=== PATIENT | female | born 1945 | race African-American/Black ===

== ENCOUNTER 2018-10-26 06:12 | Day surgery (SDC) | payer MEDICARE, OTHER ==
--- NOTE | 2018-10-23 09:56 | Opthalmology H&P ---
Ophthalmology H&P H&P Chief Complaint: decreased vision in right eye HPI Vision Affects Ability to: read, manage personal affairs Past Ocular History: retinal problems - HTN RETINOPATHY OU,PRD OU HPI Narrative Blurry Vision Exam Visual Acuity: OD 20/100 OS 20/100 Tension: OD 14 OS 15 Eye Exam: normal OU: external exam, palpebral fissure-width, marginal reflex distance, levator function, corneas, anterior chambers; findings: lens - NS Cataract OU, fundus exam - HTN Retinopathy OU/ PRD OU Assessment/Plan Treatment Plan: cataract extraction w/ lens implant Goals of Treatment: improvement of vision, enhance quality of life Attestation Attestation The risks and benefits of the surgery as well as alternative procedures were explained to the patient in detail. Patriec Love MD Oct 23, 2018 09:56
--- NOTE | 2018-10-23 09:57 | Pre-Procedure Note/Attestation ---
Pre-Procedure Note/Attestation Complete Prior to Procedure Planned Procedure: right Procedure Narrative: Cataract Extraction With Intraocular Lens Implant Right Eye Indications for Procedure Pre-Operative Diagnosis: Nuclear Sclerotic Cataract Right Eye Attestation I attest that I discussed the nature of the procedure; its benefits; risks and complications; and alternatives (and the risks and benefits of such alternatives ), prior to the procedure, with the patient (or the patient's legal roofing sales representative). I attest that, if there was a reasonable possibility of needing a blood transfusion, the patient (or the patient's legal roofing sales representative) was given the [facility] standardized written summary, pursuant to the Matthew Margret Blood Safety Act ([place] Health and Safety Code # 1645, as amended). I attest that I re-evaluated the patient just prior to the surgery and that there has been no change in the patient's H&P, except as documented below: Patrice Love MD Oct 23, 2018 09:57
[~2018-10-26] VITALS: Ht 160 cm; Wt 79.4 kg
[2018-10-26] VITALS (9 sets, daily range): BP systolic 116–150; BP diastolic 62–75
[2018-10-26] MEDS ORDERED: Diclofenac Sod 0.1% Op Soln RIGHT EYE SCH (07:00)
[2018-10-26] MEDS ORDERED: Tetracaine 0.5% Opth 4ml Soln RIGHT EYE ONE (07:00)
[2018-10-26] MEDS ORDERED: Proparacaine 0.5% Opth Soln 15ml RIGHT EYE ONE (07:00)
[2018-10-26] MEDS ORDERED: Maxitrol Opth Oint 3.5gm ONE (07:00)
[2018-10-26] MEDS ORDERED: Pilocarpine 1% Opth 15ml Soln ONE (07:00)
[2018-10-26] MEDS ORDERED: Dexamethasone 4mg/ml vial ONE (07:00)
[2018-10-26] MEDS ORDERED: Pred Forte 1% Opth Susp 1ml ONE (07:00)
[2018-10-26] MEDS ORDERED: Akten 3.5% 1ml Btl RIGHT EYE ONE (07:00)
[2018-10-26] MEDS: Tropicamide 1% Opth 15ml Soln RIGHT EYE SCH ×3 (08:02→08:29)
[2018-10-26] MEDS: Cyclopentolate 1% Opth Sol 2ml RIGHT EYE SCH ×3 (08:02→08:29)
[2018-10-26] MEDS: Phenylephrine 10% Opth Soln 5ml RIGHT EYE SCH ×3 (08:03→08:29)
[2018-10-26] MEDS: Tobramycin Op Soln 0.3% 5ml RIGHT EYE SCH ×3 (08:03→08:29)
[2018-10-26] MEDS ORDERED: IRON159 MG PO (08:25)
[2018-10-26] MEDS ORDERED: MECLIZINE HCL25 MG ORAL (08:25)
[2018-10-26] MEDS ORDERED: ACETAMINOPHEN325 M1 ORAL (08:25)
[2018-10-26] MEDS ORDERED: HYDROCHLOROTHIA25 MG ORAL (08:25)
[2018-10-26] MEDS ORDERED: ZANTAC150 MG ORAL (08:25)
[2018-10-26] MEDS ORDERED: LOSARTAN POTASS25 MG ORAL (08:25)
[2018-10-26] MEDS ORDERED: ROBAXIN500 MG PO (08:25)
[2018-10-26] MEDS ORDERED: VITAMIN C500 M1 ORAL (08:25)
[2018-10-26] MEDS ORDERED: VITAMIN D1000 UNI1 ORAL (08:25)
--- NOTE | 2018-10-26 09:32 | Anethesia Preoperative Eval ---
Anesthesia Pre-op PMH/ROS General Date of Evaluation: Oct 26, 2018 Time of Evaluation: 09:28 Anesthesiologist: Susan ASA Score: ASA 2 Mallampati Score Class I : Soft palate, uvula, fauces, pillars visible Class II: Soft palate, uvula, fauces visible Class III: Soft palate, base of uvula visible Class IV: Only hard plate visible Mallampati Classification: Class II Surgeon: Kate Diagnosis: R eye cataract Surgical Procedure: R eye cataract extractiion Anesthesia History: none Social History: smoking - h/o Family History: no anesthesia problems Allergies: Coded Allergies: No Known Allergies (Unverified , 10/23/18) Medications: see eMAR Patient NPO?: Yes Past Medical History Cardiovascular: Reports: HTN; Denies: CAD, NM, valve dz, arrhythmia, other Pulmonary: Denies: asthma, COPD, HECTOR, other Gastrointestinal/Genitourinary: Reports: GERD; Denies: CRI, ESRD, other Neurologic/Psychiatric: Reports: depression/anxiety; Denies: dementia, CVA, TIA, other Endocrine: Denies: DM, hypothyroidism, steroids, other HEENT: Reports: cataract (L), cataract (R); Denies: glaucoma, [place] (L), [place] (R), other Hematology/Immune: Reports: anemia - mild; Denies: DVT, bleeding disorder, other Musculoskeletal/Integumentary: Reports: DJD Other: other - overweight PMH Narrative: as above PSxH Narrative: see H&P Anesthesia Pre-op Phys. Exam Physician Exam Last Vital Signs Date Time Temp Pulse Resp B/P (MAP) Pulse Ox O2 Delivery O2 Flow Rate FiO2 10/26/18 08:15 97.5 65 20 116/62 99 Room Air Constitutional: NAD Neurologic: CN 2-12 intact Cardiovascular: RRR, no M/R/G Respiratory: CTA Gastrointestinal: S/NT/ND Airway Exam Mallampati Score: Class II MO: limited Neck: stiff ROM: limited Teeth: missing Dentures: no upper, no lower Anesthesia Pre-op A/P Labs see chart Studies Pre-op Studies: EKG - SR Risk Assessment & Plan Assessment: ASA 2 Plan: MAC Status Change Before Surgery: No Dann Davis MD Oct 26, 2018 09:32
[2018-10-26] MEDS ORDERED: fentaNYL 100 mcg/2 mL IV PRN (09:45)
[2018-10-26] MEDS ORDERED: LR 1000ml ONE (10:00)
[2018-10-26] MEDS ORDERED: NS Irrig 1000ml ONE (10:00)
[2018-10-26] MEDS ORDERED: Sterile Water Irrig 1000ml IRRIG ONE (10:00)
[2018-10-26] MEDS ORDERED: fentaNYL 100 mcg/2 mL IV ONE (10:00)
--- NOTE | 2018-10-26 10:36 | Immediate Post-Op Evaluation ---
Immediate Post-Op Evalulation Immediate Post-Op Evalulation Procedure: R eye cataractextraction with IOL Date of Evaluation: Oct 26, 2018 Time of Evaluation: 10:35 IV Fluids: 300 Blood Products: none Estimated Blood Loss: none Urinary Output: none Blood Pressure Systolic: 141 Blood Pressure Diastolic: 75 Pulse Rate: 68 Respiratory Rate: 20 O2 Sat by Pulse Oximetry: 98 Temperature (Fahrenheit): 97.8 Pain Score (1-10): 1 Nausea: No Vomiting: No Complications none Patient Status: awake, patent, none Hydration Status: adequate Dann Davis MD Oct 26, 2018 10:36
--- NOTE | 2018-10-26 12:55 | 48 Hour Post Anesthesia Eval ---
Post Anesthesia Evaluation Procedure: R eye cataractextraction with IOL Date of Evaluation: Oct 26, 2018 Time of Evaluation: 12:54 Blood Pressure Systolic: 148 0: 75 Pulse Rate: 64 Respiratory Rate: 20 Temperature (Fahrenheit): 97.6 O2 Sat by Pulse Oximetry: 97 Airway: patent Nausea: No Vomiting: No Pain Intensity: 1 Hydration Status: adequate Cardiopulmonary Status: stable Mental Status/LOC: patient returned to baseline Follow-up Care/Observations: n/a Post-Anesthesia Complications: none Follow-up care needed: ready to discharge Dann Davis MD Oct 26, 2018 12:55
[2018-10-26] MEDS ORDERED: EPINEPHrine 1mg/1ml Amp ONE (14:15)
[2018-10-26] MEDS ORDERED: BSS 15ml BTL ONE (14:16)
[2018-10-26] MEDS ORDERED: BSS 500ml btl ONE (14:16)
[2018-10-26] MEDS ORDERED: Sodium Hyaluronate 14 mg/ml 0.85ml ONE (14:16)
[2018-10-26] MEDS ORDERED: Povidone-Iodine 5% opth solution ONE (14:16)
--- NOTE | 2018-10-27 12:49 | Brief Operative Note ---
Immediate Post Operative Note Operative Note Chief Complaint: blurry vision Pre-op Diagnosis: Nuclear Sclerotic Cataract Right Eye Procedure: phaco with IOL Post-op Diagnosis: Pseudophakia Post-op Diagnosis: same as pre-op Findings: consistent w/pre-op dx studies Surgeon: Kate Anesthesiologist: Susan Anesthesia: MAC Specimen: none Complications: none Condition: stable Fluids: LR Estimated Blood Loss: none Drains: none Implant(s) used?: Yes Patrice Love MD Oct 27, 2018 12:49
--- NOTE | 2018-10-27 12:50 | Operative Note - PDOC ---
Operative Note Operative Note Date of Operation/Procedure: Oct 26, 2018 Chief Complaint: blurry vision Pre-op Diagnosis: Nuclear Sclerotic Cataract Right Eye Procedure: phaco with IOL Post-op Diagnosis: Pseudophakia Post-op Diagnosis: same as pre-op Operative Findings: consistent w/pre-op dx studies Surgeon: Kate Anesthesiologist: Susan Anesthesia: MAC Specimen: none Complications: none Condition: stable Fluids: LR Estimated Blood Loss: none Drains: none Implant(s) used?: Yes Indications for Procedure cataract Description of Procedure This patient has been complaining visually significant cataract in the affected eye with the best corrected visual acuity under moderate glare conditions worse. The patient complains of difficulties with glare in performing activities of daily living and wants to manage personal affairs with comfort and accuracy and see well enough to move with safety at home and outdoors. The risks, benefits and alternatives of the procedure were discussed with the patient in the office prior to scheduling surgery. All questions from the patient were answered after the surgical procedure was explained in detail. The risks of the procedure as explained to the patient include, but are not limited to, pain, infection, bleeding, loss of vision, retinal detachment, need for further surgery, loss of lens nucleus, double vision, etc. Alternative procedures were discussed which include, to do nothing or seek a second opinion. Informed consent for this procedure was obtained from the patient. The patient was referred to a primary care physician for a cardiopulmonary clearance prior to surgery, after proper evaluation was done patient was properly scheduled for outpatient surgery. The patient was brought to the operating room where the anesthesiologist established I.V. lines and cardiac monitoring leads. Mild intravenous sedation was administered. The patient was then prepared with a 5% solution of povidone -iodine to the conjunctival fornix and lashes, and a 5% solution of povidone- iodine to the lids and periorbital skin. The patient was then draped in the usual sterile fashion. A lid speculum was then placed in the operative eye. A keratome blade was then used to create a biplanar incision into the anterior chamber. Viscoelastics was then instilled into the anterior chamber. A curvilineaer capsulorrhexis was then fashioned with an utrata forceps. BSS and a G 27 cannula were then used to hydrodissect and hydro delineate the lens. Paracentesis incision was made at 3 o'clock with sharp blade. The phacoemulsification unit, after being properly adjusted and tested, was then used to emulsify the nucleus followed by residual cortical material being aspirated with the irrigation and aspiration unit. Healon was then instilled into the anterior chamber. The corneal wound was then enlarged to the size of the optic with the jeri keratome blade. The intraocular lens was then inspected for right power and size and thought to be satisfactory. Then the lens was gently placed in the capsular bag. Positioning within the capsular bag was confirmed by direct visualization. Optic centration was accomplished with a Sinskey hook. Viscoelastics was removed from the anterior chamber using the irrigation and aspiration unit. The corneal wound was then tested for leaks and none were found. The lid speculum were then removed. Sponge and needle counts were correct. An eye patch and shield were placed over the operative eye. The patient was taken to the recovery room in stable condition. There were no complications. The patient tolerated the procedure well. The patient was then transferred to the ambulatory surgery unit in stable and satisfactory condition , was given detailed written instructions and asked to follow up in the office the next day. Patrice Love MD Oct 27, 2018 12:50
== END 2018-10-26 11:55 | disposition home or self-care (01) ==
LOC: SUR 06:12
DX: H25.11 Age-related nuclear cataract, right eye (principal); H35.00 Unspecified background retinopathy; I10 Essential (primary) hypertension; M19.90 Unspecified osteoarthritis, unspecified site; K21.9 Gastro-esophageal reflux disease without esophagitis; F32.9 Major depressive disorder, single episode, unspecified; F41.9 Anxiety disorder, unspecified
CPT/HCPCS: 66984; J0171; J1100; J3010; J3370; V2632; 94003; 94150

== ENCOUNTER 2018-11-23 06:44 | Day surgery (SDC) | payer MEDICARE, MEDICAID ==
[2018-11-19 08:54] LABS: HEMATOCRIT 32.7 % (37.0-47.0); HEMOGLOBIN 10.7 G/DL (12.0-16.0); MEAN CORPUSCULAR VOLUME 92 FL (80-99); PLATELET COUNT 80 K/UL (150-450); RED BLOOD COUNT 3.56 M/UL (4.20-5.40); RED CELL DISTRIBUTION WIDTH 12.1 % (11.6-14.8); WHITE BLOOD COUNT 2.6 K/UL (4.8-10.8)
[2018-11-19 09:12] LABS: ANION GAP 6 mmol/L (5-15); BLOOD UREA NITROGEN 15 mg/dL (7-18); CARBON DIOXIDE 26 MMOL/L (21-32); CHLORIDE 110 MMOL/L (98-107); CREATININE 0.9 MG/DL (0.55-1.30); POTASSIUM 3.4 MMOL/L (3.5-5.1); SODIUM 142 MMOL/L (136-145)
--- NOTE | 2018-11-19 16:15 | Pre-op HX & Phy Repo 2 SIG ---
DATE OF ADMISSION: 11/23/2018 PRESURGICAL INTERNAL MEDICINE HISTORY AND PHYSICAL DATE OF PLANNED SURGERY: Surgery is scheduled for 11/23/2018. HISTORY OF PRESENT ILLNESS: I was asked by Dr. Patrice Love to see this 73-year-old female, who is going for elective surgery on the left eye. The patient has nuclear sclerotic cataract, left eye. The patient was examined and chart was reviewed at the [facility] outpatient procedure department. PAST MEDICAL HISTORY/REVIEW OF SYSTEMS: Remarkable for history of hypertension. No history of chest pain, palpitation, or heart attack. Denies history of stroke or seizures. No history of diabetes. Denies history of respiratory problem, asthma or bronchitis. The patient does have history of iron deficiency anemia, pancytopenia, history of constipation and cholelithiasis. No history of thyroid problem. No history of renal failure. PAST SURGICAL HISTORY: Right eye cataract three months ago and hysterectomy more than 30 years ago. Also bunion bilaterally, upper GI and colonoscopy last year, and larynx polyp removed months ago. FAMILY HISTORY: Mother from cancer of uterus. Father unknown. ALLERGIES: Not known. PRESENT MEDICATIONS: Include losartan, hydrochlorothiazide, Robaxin, vitamin D, vitamin C, ranitidine, Maalox , iron sulfate, and Tylenol p.r.n. HABITS: The patient smoked in the past for approximately 15 years and stopped in 1970. Denies alcohol or street drug use. PHYSICAL EXAMINATION: GENERAL: Alert, well-developed and well-nourished female, overweight. VITAL SIGNS: Blood pressure 147/67, temperature 97.5, pulse 75, and respirations 20. O2 saturation 98% on room air. SKIN: Clear and warm. No rashes or ulceration. LYMPHATICS: Lymph nodes not enlarged. HEENT: Head is normocephalic and atraumatic. Ears, clear. No discharge. Eyes, full description per Dr. Patrice Love. Mouth, clear and moist. Partial dentures in upper and lower. NECK: Supple. No jugular distention. Carotids artery +2. Trachea midline. CHEST: No deformity or asymmetry. LUNGS: Clear to auscultation and percussion. HEART: Sinus rhythm. Sound distant. No ectopy. No murmur. No S3, S4. ABDOMEN: Soft, obese. Liver and spleen not enlarged. No rebound. EXTREMITIES: Degenerative joint disease of knee. No edema. No varicose veins. NEUROLOGIC: No tremor. No nystagmus. DIAGNOSTIC DATA: ECG dated 10/01/2018, normal sinus rhythm, 69 per minute, normal ECG. LABORATORY DATA: Lab work done today showed a sodium 142, potassium 3.4, BUN 15, and creatinine 0.9. Blood sugar 123. Calcium 10.0. CBC - white blood cells. 2.6, hemoglobin 10.7, hematocrit 33.7, red blood cells , platelets 80,000. IMPRESSION: 1. Nuclear sclerotic cataract, left eye. 2. Hypertension, controlled. 3. Cholelithiasis. 4. Pancytopenia. 5. Hypokalemia. 6. Degenerative joint disease, osteoarthritis of knee. PLAN: Cataract extraction, left eye with intraocular lens implant per Dr. Patrice Love. CONCLUSION: The patient is a 73-year-old female, who has history of hypertension. She has pancytopenia and anemia. The patient to be NPO after midnight on Friday. The patient's condition is optimized for surgery. Thank you very much, Dr. Love, for privilege to participate in the presurgical care of this interesting patient. Mack King M.D. DR: RUIZ JOB#: [id number] CC:
--- NOTE | 2018-11-20 10:32 | Opthalmology H&P ---
Ophthalmology H&P H&P Chief Complaint: decreased vision in left eye HPI Vision Affects Ability to: read, manage personal affairs HPI Narrative blurry vision Exam Visual Acuity: OD 20/25 OS 20/200 Tension: OD 18 OS 19 Eye Exam: normal OU: external exam, palpebral fissure-width, marginal reflex distance, levator function, corneas, anterior chambers; findings: lens - pseudo OD / NS cataract OS, fundus exam - htn retinopathy Assessment/Plan Treatment Plan: cataract extraction w/ lens implant Goals of Treatment: improvement of vision, enhance quality of life Attestation Attestation The risks and benefits of the surgery as well as alternative procedures were explained to the patient in detail. Patrice Love MD November 20, 2018 10:32
--- NOTE | 2018-11-20 10:33 | Pre-Procedure Note/Attestation ---
Pre-Procedure Note/Attestation Complete Prior to Procedure Planned Procedure: left Procedure Narrative: Cataract extraction with intraocular lens implant left eye Indications for Procedure Pre-Operative Diagnosis: Nuclear sclerotic cataract left eye Attestation I attest that I discussed the nature of the procedure; its benefits; risks and complications; and alternatives (and the risks and benefits of such alternatives ), prior to the procedure, with the patient (or the patient's legal litigation claim representative). I attest that, if there was a reasonable possibility of needing a blood transfusion, the patient (or the patient's legal litigation claim representative) was given the [facility] standardized written summary, pursuant to the [place] Blood Safety Act ([place] Health and Safety Code # 1645, as amended). I attest that I re-evaluated the patient just prior to the surgery and that there has been no change in the patient's H&P, except as documented below: Patrice Love MD November 20, 2018 10:33
[2018-11-23] VITALS (10 sets, daily range): BP systolic 139–155; BP diastolic 63–74
[~2018-11-23] VITALS: Ht 160 cm; Wt 79.4 kg
[~2018-11-23 06:44] MED LIST: ACETAMINOPHEN325 M1 ORAL; HYDROCHLOROTHIA25 MG ORAL; IRON159 MG PO; LOSARTAN POTASS25 MG ORAL; MECLIZINE HCL25 MG ORAL; ROBAXIN500 MG PO; VITAMIN C500 M1 ORAL; VITAMIN D1000 UNI1 ORAL; ZANTAC150 MG ORAL
[2018-11-23] MEDS ORDERED: Proparacaine 0.5% Opth Soln 15ml LEFT EYE ONE (07:00)
[2018-11-23] MEDS ORDERED: Tetracaine 0.5% Opth 4ml Soln LEFT EYE ONE (07:00)
[2018-11-23] MEDS ORDERED: Akten 3.5% 1ml Btl LEFT EYE ONE (07:00)
[2018-11-23] MEDS: Tropicamide 1% Opth 15ml Soln LEFT EYE SCH ×3 (08:47→09:08)
[2018-11-23] MEDS: Tobramycin Op Soln 0.3% 5ml LEFT EYE SCH ×3 (08:48→09:08)
[2018-11-23] MEDS: Diclofenac Sod 0.1% Op Soln LEFT EYE SCH ×3 (08:48→09:08)
[2018-11-23] MEDS: Cyclopentolate 1% Opth Sol 2ml LEFT EYE SCH ×3 (08:48→09:08)
[2018-11-23] MEDS: Phenylephrine 10% Opth Soln 5ml LEFT EYE SCH ×3 (08:48→09:08)
[2018-11-23] MEDS ORDERED: BSS 500ml btl ONE (10:41)
[2018-11-23] MEDS ORDERED: EPINEPHrine 1mg/1ml Amp ONE (10:41)
[2018-11-23] MEDS ORDERED: Sodium Hyaluronate 14 mg/ml 0.85ml ONE (10:41)
[2018-11-23] MEDS ORDERED: Povidone-Iodine 5% opth solution ONE (10:41)
[2018-11-23] MEDS ORDERED: BSS 15ml BTL ONE (10:41)
[2018-11-23] MEDS ORDERED: Propofol 200mg/20ml IV ONE (10:44)
[2018-11-23] MEDS ORDERED: Lidocaine 1% MPF 10mg/ml 5ml ONE (10:44)
[2018-11-23] MEDS ORDERED: Sterile Water Irrig 1000ml IRRIG ONE (10:44)
[2018-11-23] MEDS ORDERED: LR 1000ml ONE (10:44)
[2018-11-23] MEDS ORDERED: Dexamethasone 4mg/ml vial ONE (10:44)
[2018-11-23] MEDS ORDERED: Pred Forte 1% Opth Susp 1ml ONE (10:44)
[2018-11-23] MEDS ORDERED: NS Irrig 1000ml ONE (10:44)
[2018-11-23] MEDS ORDERED: Maxitrol Opth Oint 3.5gm ONE (10:44)
[2018-11-23] MEDS ORDERED: Pilocarpine 1% Opth 15ml Soln ONE (10:44)
[2018-11-23] MEDS ORDERED: LORazepam Inj 2mg/ml 1ml IV PRN (10:45)
[2018-11-23] MEDS ORDERED: fentaNYL 100 mcg/2 mL IV PRN (10:45)
[2018-11-23] MEDS ORDERED: Hydromorphone 0.5mg/0.5ml inj IVP PRN (10:45)
[2018-11-23] MEDS ORDERED: Midazolam 2mg/2ml Inj IVP PRN (10:45)
[2018-11-23] MEDS ORDERED: DiphenhydrAMINE 50mg/ml Inj IVP PRN (10:45)
[2018-11-23] MEDS ORDERED: Metoclopramide 10mg/2ml Inj IVP PRN (10:45)
[2018-11-23] MEDS ORDERED: HYDROcodone/Acetamin 5/325 tab ORAL PRN (10:45)
[2018-11-23] MEDS ORDERED: Labetalol 5mg/ml 20ml vial IV PRN (10:45)
[2018-11-23] MEDS ORDERED: Ketorolac 30mg Inj IV PRN ×2 (10:45)
[2018-11-23] MEDS ORDERED: Meperidine 50mg/ml Inj(FOR RIGORS ONLY) IVP PRN (10:45)
[2018-11-23] MEDS ORDERED: LR 1000ml 1,000 ML IVLG SCH (10:45)
[2018-11-23] MEDS ORDERED: Atropine Sulfate 0.4mg/ml inj IVP PRN (10:45)
[2018-11-23] MEDS ORDERED: oxyCODONE HCL/Acetaminophen 5/325mg ORAL PRN (10:45)
[2018-11-23] MEDS ORDERED: HYDROcodone/Acetamin 7.5/325 tab ORAL PRN (10:45)
--- NOTE | 2018-11-23 10:48 | Anethesia Preoperative Eval ---
Anesthesia Pre-op PMH/ROS General Date of Evaluation: November 23, 2018 Time of Evaluation: 10:44 Anesthesiologist: Nitesh ASA Score: ASA 3 Mallampati Score Class I : Soft palate, uvula, fauces, pillars visible Class II: Soft palate, uvula, fauces visible Class III: Soft palate, base of uvula visible Class IV: Only hard plate visible Mallampati Classification: Class II Surgeon: Kate Diagnosis: Catract OS Surgical Procedure: Cat ext IOL OS Anesthesia History: none Family History: no anesthesia problems Allergies: Coded Allergies: No Known Allergies (Unverified , 10/23/18) Medications: see eMAR Patient NPO?: Yes Past Medical History Cardiovascular: Reports: HTN Gastrointestinal/Genitourinary: Reports: GERD HEENT: Reports: cataract (L), cataract (R) Musculoskeletal/Integumentary: Reports: OA Other: obesity - BMI 33 PSxH Narrative: VC Polyps Sx, Ovarian SX, Cat Ext IOL OD Anesthesia Pre-op Phys. Exam Physician Exam Last Vital Signs Date Time Temp Pulse Resp B/P (MAP) Pulse Ox O2 Delivery O2 Flow Rate FiO2 11/23/18 08:54 Room Air 11/23/18 08:50 97.4 66 18 139/70 96 Constitutional: NAD Neurologic: CN 2-12 intact Cardiovascular: RRR Respiratory: CTA Gastrointestinal: S/NT/ND Airway Exam Mallampati Score: Class II MO: full ROM: limited Teeth: missing Dentures: upper, lower Anesthesia Pre-op A/P Risk Assessment & Plan Assessment: ASA 3 Plan: GA Status Change Before Surgery: No Austin Dowling MD November 23, 2018 10:48
--- NOTE | 2018-11-23 11:02 | Immediate Post-Op Evaluation ---
Immediate Post-Op Evalulation Immediate Post-Op Evalulation Procedure: Cat ext IOL OS Date of Evaluation: November 23, 2018 Time of Evaluation: 11:40 IV Fluids: 800 LR Blood Products: 0 Estimated Blood Loss: 1 Urinary Output: 0 Blood Pressure Systolic: 155 Blood Pressure Diastolic: 72 Pulse Rate: 67 Respiratory Rate: 16 O2 Sat by Pulse Oximetry: 99 Temperature (Fahrenheit): 97.9 Pain Score (1-10): 1 Nausea: No Vomiting: No Complications 0 Patient Status: awake, reacts, patent, none Hydration Status: adequate Austin Dowling MD November 23, 2018 11:02
--- NOTE | 2018-11-23 11:02 | 48 Hour Post Anesthesia Eval ---
Post Anesthesia Evaluation Procedure: Cat ext IOL OS Date of Evaluation: November 23, 2018 Time of Evaluation: 13:52 Blood Pressure Systolic: 156 0: 79 Pulse Rate: 73 Respiratory Rate: 18 Temperature (Fahrenheit): 98.2 O2 Sat by Pulse Oximetry: 98 Airway: patent Nausea: No Vomiting: No Pain Intensity: 1 Hydration Status: adequate Cardiopulmonary Status: Stable Mental Status/LOC: patient returned to baseline Follow-up Care/Observations: 0 Post-Anesthesia Complications: 0 Follow-up care needed: ready to discharge Austin Dowling MD November 23, 2018 11:02
--- NOTE | 2018-11-24 14:28 | Brief Operative Note ---
Immediate Post Operative Note Operative Note Chief Complaint: Blurry Vision Pre-op Diagnosis: Nuclear sclerotic cataract left eye Procedure: Cataract extraction with IOL implant left eye Post-op Diagnosis: Pseudo OS Surgeon: Patrice Love MD Anesthesiologist: Austin Dowling MD Anesthesia: MAC Specimen: none Complications: none Condition: stable Fluids: LR Estimated Blood Loss: none Drains: none Implant(s) used?: Yes Patrice Love MD November 24, 2018 14:28
--- NOTE | 2018-11-24 14:31 | Operative Note - PDOC ---
Operative Note Operative Note Date of Operation/Procedure: November 23, 2018 Chief Complaint: Blurry Vision Pre-op Diagnosis: Nuclear sclerotic cataract left eye Procedure: Cataract extraction with IOL implant left eye Post-op Diagnosis: Pseudo OS Surgeon: Patrice Love MD Anesthesiologist: Austin Dowling MD Anesthesia: MAC Specimen: none Complications: none Condition: stable Fluids: LR Estimated Blood Loss: none Drains: none Implant(s) used?: Yes - IOL Indications for Procedure Nuclear sclerotic cataract left eye Description of Procedure This patient has been complaining visually significant cataract in the left eye with the best corrected visual acuity of 20/200 under moderate glare conditions worse. The patient complains of difficulties with glare in performing activities of daily living and wants to manage personal affairs with comfort and accuracy and see well enough to move with safety at home and outdoors. The risks, benefits and alternatives of the procedure were discussed with the patient in the office prior to scheduling surgery. All questions from the patient were answered after the surgical procedure was explained in detail. The risks of the procedure as explained to the patient include, but are not limited to, pain, infection, bleeding, loss of vision, retinal detachment, need for further surgery, loss of lens nucleus, double vision, etc. Alternative procedures were discussed which include, to do nothing or seek a second opinion. Informed consent for this procedure was obtained from the patient. The patient was referred to a primary care physician for a cardiopulmonary clearance prior to surgery, after proper evaluation was done patient was properly scheduled for outpatient surgery. The patient was brought to the operating room where the anesthesiologist established I.V. lines and cardiac monitoring leads. Mild intravenous sedation was administered. The patient was then prepared with a 5% solution of povidone -iodine to the conjunctival fornix and lashes, and a 5% solution of povidone- iodine to the lids and periorbital skin. The patient was then draped in the usual sterile fashion. A lid speculum was then placed in the operative eye. A keratome blade was then used to create a biplanar incision into the anterior chamber. Viscoelastics was then instilled into the anterior chamber. A curvilinear capsulorrhexis was then fashioned with an utrata forceps. A BSS was used with G-27 cannula was used to hydrodissect and hydrodelineate the lens nucleus. Paracentesis incision was made at 9 o'clock with sharp blade. The phacoemulsification unit, after being properly adjusted and tested, was then used to emulsify the lens nucleus and residual cortical material was aspirated with the irrigation and aspiration unit. Vioscoelastic n was then instilled into the anterior chamber. The corneal wound was then enlarged to the size of the optic with the jeri keratome blade. The intraocular lens was then inspected for right power and size and thought to be satisfactory. Then the lens was gently placed in the capsular bag. Positioning within the capsular bag was confirmed by direct visualization. Optic centration was accomplished with a Sinskey hook. Viscoelastics was removed from the anterior chamber using the irrigation and aspiration unit. The corneal wound was then tested for leaks and none were found. The lid speculum were then removed. Sponge and needle counts were correct. An eye patch and shield were placed over the operative eye. The patient was taken to the recovery room in stable condition. There were no complications. The patient tolerated the procedure well. The patient was then transferred to the ambulatory surgery unit in stable and satisfactory condition , was given detailed written instructions and asked to follow up in the office the next day. Patrice Love MD November 24, 2018 14:31
== END 2018-11-23 13:10 | disposition home or self-care (01) ==
LOC: SUR 06:44
DX: H25.12 Age-related nuclear cataract, left eye (principal); I10 Essential (primary) hypertension; Z90.710 Acquired absence of both cervix and uterus; Z80.59 Family history of malignant neoplasm of other urinary tract organ; Z79.899 Other long term (current) drug therapy; Z87.891 Personal history of nicotine dependence; K80.20 Calculus of gallbladder without cholecystitis without obstruction; D61.818 Other pancytopenia; E87.6 Hypokalemia; M17.10 Unilateral primary osteoarthritis, unspecified knee; D64.9 Anemia, unspecified; K21.9 Gastro-esophageal reflux disease without esophagitis; E66.9 Obesity, unspecified; Z68.31 Body mass index [BMI] 31.0-31.9, adult
CPT/HCPCS: 36415; 66984; 80048; 85007; 85025; J0171; J1100; J2704; J3370; V2632; 94003; 94150